=== PATIENT | female | born 1965 | race Caucasian/White ===

== ENCOUNTER 2016-12-12 10:41 | Outpatient (RCR) | payer OTHER ==
[~2016-12-12 10:41] MED LIST: ACET50TAOT PO; CALC500C16 PO; CALC600T10 PO; IBUP200C PO; IBUP60TA PO; NORC5TAB PO
== END 2016-12-18 ==
LOC: M PT 10:41
PROVIDERS: ATTEND Orthopaedic Surgery
DX: Z51.89 Encounter for other specified aftercare (principal); M50.30 Other cervical disc degeneration, unspecified cervical region

== ENCOUNTER → 2016-12-29 | Outpatient (CLI) | payer OTHER ==
--- NOTE | 2016-12-31 09:23 | REP ---
MRI CERVICAL SPINE WITHOUT CONTRAST: 12/29/2016. Clinical history: Neck pain, degenerative disc disease. Right upper extremity tingling. Injury a few months ago. Technique: Sagittal T1, T2 and STIR images with axial T1 and T2 sequences. Comparison: CT cervical spine 03/23/2011. Findings: Sagittal images show loss of the normal lordosis as seen in the 2010 study. There is cervical spondylosis at the C5-6 and C6-7 with vertebral hemangioma of the posterior and superior aspect of the C6 level. All of the disc levels show some loss of disc water signal. Disc height best maintained at C3-4 and C2-3, slightly narrowed at C4-5. Vertebral body heights are maintained. Marrow signal is otherwise normal. The dens intact. Cervical cord shows no intrinsic signal abnormality, syrinx, atrophy or mass. At C2-3 there is no disc bulge or herniation and no spinal or foraminal stenosis. At C3-4 there is no significant disc bulge herniation and no spinal or foraminal stenosis. At C4-5 there is mild broad-based disc bulge without significant spinal stenosis. The foramina were adequate. At C5-6 there is a broad-based disc bulge flattening ventral thecal sac. Cross-sectional area of the canal adequate. The foramina adequate on the left marginally adequate on the right. At C6-7 there is a right paracentral disc extrusion abutting and displacing the ventral cord surface on the right. Cross-sectional area of the canals otherwise adequate as are the foramina abutting and displacing the ventral cord surface. The cross-sectional area of the canal was adequate as are the foramina. At C7-T1 there is no disc bulge or herniation and no spinal or foraminal stenosis. Impression: 1. Cervical spondylosis at C5-6, less at C6-7 and C4-5. 2. Right paracentral disc extrusion at C6-7. No significant stenosis. 3. Broad-based disc bulge at C5-6 flattening ventral thecal sac, but the cross-sectional area of the canal and left foramen are adequate. The right foramen marginally adequate. Vertebral hemangioma at the superior posterior aspect of the C6 vertebral body as on CT. 4. Disc bulge at the C4-5 flattens ventral thecal sac, but the cross-sectional area canal and foramina appear adequate. The other levels unremarkable. Signed by Reese Day MD 01/01/2017 12:31 P
== END ==
LOC: M RAD 09:03
PROVIDERS: ATTEND Orthopaedic Surgery
DX: M54.12 Radiculopathy, cervical region (principal)

== ENCOUNTER 2017-01-03 08:57 | Outpatient (RCR) | payer OTHER ==
[~2017-01-03 08:57] MED LIST changes: +NORC1TAB4 PO; -NORC5TAB PO
== END 2017-01-18 ==
LOC: M PT 08:57
PROVIDERS: ATTEND Orthopaedic Surgery
DX: Z51.89 Encounter for other specified aftercare (principal); M50.30 Other cervical disc degeneration, unspecified cervical region

== ENCOUNTER → 2017-09-03 | Outpatient (REF) | payer BC ==
[~2017-09-03] MED LIST changes: -CALC600T10 PO; +CALC600T31 PO; -IBUP200C PO; +IBUP200C10 PO
--- NOTE | 2017-09-03 13:13 | REP ---
DIAGNOSTIC MAMMOGRAM OF THE LEFT BREAST WITH LEFT BREAST ULTRASOUND: Diagnostic mammogram of the left breast performed. Multiple spot compression views are obtained and compared to prior study of 08/16/2017, as well as multiple other prior exams. The suspected spiculated nodular density in the lower left breast does not appear to be persist on the additional spot compression views. There is no change compared to more remote exams. Real-time sonographic evaluation of the inferior left breast performed demonstrates dense fibroglandular tissue without a discrete cystic or solid mass. IMPRESSION: BI-RADS/ACR category 2 mammogram. Benign finding(s). Routine annual screening mammography (for women over age 40). ACR 2 benign. No persistent spiculated nodule on today's spot compression views. There is also no sonographic abnormality in the inferior left breast. Recommend followup mammogram in 1 year. The patient letter being requested is M1. Signed by Jose Wolfe MD 09/03/2017 01:32 P
== END ==
LOC: EDSTATUS 10:30 → M RAD 10:31
PROVIDERS: ATTEND Family Medicine
DX: Z12.31 Encounter for screening mammogram for malignant neoplasm of breast (principal)

== ENCOUNTER → 2018-04-08 | Outpatient (CLI) | payer BC ==
[2018-04-08 07:50] LABS: HEMATOCRIT 39.9 % (36.0-47.0); HEMOGLOBIN 13.3 g/dl (12.0-15.5); MEAN CORPUSCULAR HEMOGLOBIN 29.6 pg (27.0-33.0); MEAN CORPUSCULAR HGB CONC 33.3 g/dl (32.0-36.5); MEAN CORPUSCULAR VOLUME 88.9 fl (80.0-96.0); PLATELET COUNT, AUTOMATED 226 10^3/uL (150-450); RED BLOOD COUNT 4.49 10^6/uL (4.00-5.40); RED CELL DISTRIBUTION WIDTH 12.2 % (11.5-14.5); WHITE BLOOD COUNT 5.6 10^3/uL (4.0-10.0)
[2018-04-08 08:25] LABS: ALBUMIN 3.3 GM/DL (3.2-5.2); ALBUMIN/GLOBULIN RATIO 0.92 (1.00-1.93); ALKALINE PHOSPHATASE 93 U/L (45-117); ALT/SGPT 24 U/L (12-78); ANION GAP 8 MEQ/L (8-16); AST/SGOT 14 U/L (7-37); BILIRUBIN,TOTAL 0.3 MG/DL (0.2-1.0); BLOOD UREA NITROGEN 20 MG/DL (7-18); CALCIUM LEVEL 8.7 MG/DL (8.5-10.1); CARBON DIOXIDE LEVEL 28 MEQ/L (21-32); CHLORIDE LEVEL 107 MEQ/L (98-107); CHOLESTEROL LEVEL 213 MG/DL (<200); CHOLESTEROL RISK RATIO 4.953 (<5); CREATININE FOR GFR 0.96 MG/DL (0.55-1.30); FREE T4 0.86 NG/DL (0.76-1.46); GLOMERULAR FILTRATION RATE > 60.0 (>51); GLUCOSE, FASTING 89 MG/DL (70-100); HDL CHOLESTEROL 43 MG/DL (>40); LDL CHOLESTEROL 136.6 MG/DL (<100); NON-HDL-C 170 MG/DL; SODIUM LEVEL 143 MEQ/L (136-145); THYROID STIMULATING HORMONE 0.656 uIU/ML (0.358-3.740); TOTAL PROTEIN 6.9 GM/DL (6.4-8.2); TRIGLYCERIDES LEVEL 167 MG/DL (<150)
== END ==
LOC: M LAB 07:01
DX: D50.9 Iron deficiency anemia, unspecified (principal); E78.00 Pure hypercholesterolemia, unspecified; E04.1 Nontoxic single thyroid nodule
CPT/HCPCS: 84443

== ENCOUNTER → 2018-09-04 | Outpatient (CLI) | payer BC | LOC: M ADAMS 14:58 | DX: J40 Bronchitis, not specified as acute or chronic (principal) | CPT/HCPCS: 71046 ==

== ENCOUNTER → 2019-03-10 | Outpatient (REF) | payer BC ==
[~2019-03-10] MED LIST changes: +ACET500T15 PO; -ACET50TAOT PO; -IBUP200C10 PO; +IBUP200C25 PO; +IBUP600T42 PO; -IBUP60TA PO; -NORC1TAB4 PO; +NORC1TAB7 PO
--- NOTE | 2019-03-10 13:35 | REPMRS ---
Patient History The patient states she had a clinical breast exam in 04/07.No known family history of cancer. 3D TOMOSYNTHESIS WAS PERFORMED. Digital Mammo Screening Bilat: March 10, 2019 - Exam #: [id number] Bilateral CC and MLO view(s) were taken. Technologist: Esther Hadley, Technologist Prior study comparison: September 03, 2017, left breast digital mammo diagnostic unilateral performed at [facility]. August 16, 2017, bilateral digital mammo screening bilat performed at [facility]. FINDINGS: The breast tissue is heterogeneously dense. This may lower the sensitivity of mammography. There has been no change in the appearance of the mammogram from the prior studies. There is a moderate amount of residual fibroglandular tissue which is fairly symmetric. There is no interval development of dominant mass, areas of architectural distortion, or clustered microcalcification typical of malignancy. Assessment: BI-RADS/ACR category 1 mammogram. Negative Mammogram. Recommendation Routine screening mammogram in 1 year (for women over age 40). This mammogram was interpreted with the aid of an FDA-approved computer-aided dectection system. Electronically Signed By: Jose Wolfe MD 03/10/19 [id number]
== END ==
LOC: M RAD 12:27 → EDSTATUS 12:30
PROVIDERS: ATTEND Obstetrics & Gynecology
DX: Z12.31 Encounter for screening mammogram for malignant neoplasm of breast (principal)

== ENCOUNTER → 2019-11-20 | Outpatient (REF) ==
--- NOTE | 2019-11-20 08:07 | REP ---
PA and lateral chest: Comparison is 11/16/2015. The lung menezes are clear. The cardiac size is normal. The josephine, mediastinum, and skeletal structures are unremarkable. Impression: Negative PA and lateral chest. There is no interval change. Electronically Signed by Jose Mccoy MD 11/20/2019 07:59 A
[2019-11-20 09:11] LABS: HEMATOCRIT 43.1 % (36.0-47.0); HEMOGLOBIN 13.4 g/dl (12.0-15.5); MEAN CORPUSCULAR HGB CONC 31.1 g/dl (32.0-36.5); PLATELET COUNT, AUTOMATED 238 10^3/uL (150-450); RED BLOOD COUNT 4.79 10^6/uL (4.00-5.40); WHITE BLOOD COUNT 4.2 10^3/uL (4.0-10.0)
[2019-11-20 09:31] LABS: BLOOD UREA NITROGEN 14 MG/DL (7-18); CARBON DIOXIDE LEVEL 29 MEQ/L (21-32); CHLORIDE LEVEL 109 MEQ/L (98-107); CHOLESTEROL LEVEL 213 MG/DL (<200); CHOLESTEROL RISK RATIO 4.733 (<5); CREATININE FOR GFR 0.96 MG/DL (0.55-1.30); GLOMERULAR FILTRATION RATE > 60.0 (>51); GLUCOSE, FASTING 88 MG/DL (70-100); HDL CHOLESTEROL 45 MG/DL (>40); LDL CHOLESTEROL 139 MG/DL (<100); NON-HDL-C 168 MG/DL; POTASSIUM SERUM 4.6 MEQ/L (3.5-5.1); SODIUM LEVEL 142 MEQ/L (136-145); TRIGLYCERIDES LEVEL 145 MG/DL (<150)
[2019-11-20 10:02] LABS: APPEARANCE, URINE CLEAR (CLEAR); BACTERIA, URINE AUTO NEGATIVE (NEGATIVE); BILIRUBIN, URINE AUTO NEGATIVE (NEGATIVE); BLOOD, URINE BLOOD 1+ (NEGATIVE); COLOR, URINE YELLOW (YELLOW); GLUCOSE, URINE (UA) AUTO NEGATIVE (NEGATIVE); KETONE, URINE AUTO NEGATIVE (NEGATIVE); LEUKOCYTE ESTERASE, URINE AUTO TRACE (NEGATIVE); NITRITE, URINE AUTO NEGATIVE (NEGATIVE); PROTEIN, URINE AUTO NEGATIVE (NEGATIVE); RBC, URINE AUTO 2 /HPF (0-3); SPECIFIC GRAVITY URINE AUTO 1.009 (1.002-1.035); SQUAMOUS EPITHELIAL CELL UR AU 1 /HPF (0-6); UROBILINOGEN, URINE AUTO 0.2 mg/dL (0.0-2.0); WBC, URINE AUTO 1 /HPF (0-3)
--- NOTE | 2019-11-21 10:50 | ECGEPIP ---
[facility] Test Date: 2019-11-20 Pat Name: ANNA MATOS Department: Room: - Gender: Female Lead Mobile Developer: RUMA : 1965 Requested By: Ruben Romero Order Number: [id number] Reading MD: Tito Keating Measurements Intervals [place] Rate: 65 P: -2 ME: 147 QRS: -14 QRSD: 77 T: 44 QT: 370 QTc: 386 Interpretive Statements SINUS RHYTHM PRIOR TRACING ON 10/27/2015 AT 1:01 P.M., NO SIGNIFICANT CHANGES Electronically Signed on 11-21-2019 10:50:11 EST by Tito Keating
== END ==
LOC: M LAB 07:19
PROVIDERS: ATTEND Family Medicine
DX: Z02.1 Encounter for pre-employment examination (principal)

== ENCOUNTER → 2020-01-08 | Outpatient (REF) | payer BC ==
[2020-01-08 12:50] LABS: FREE T4 1.04 NG/DL (0.76-1.46); THYROID STIMULATING HORMONE 0.739 uIU/ML (0.358-3.740)
== END ==
LOC: M SFHCADAM 08:19
PROVIDERS: ATTEND Family Medicine
DX: R06.09 Other forms of dyspnea (principal)

== ENCOUNTER → 2020-08-15 | Outpatient (CLI) | payer BC ==
--- NOTE | 2020-08-16 10:40 | PFTRPT ---
Height: 68.00 Inches Weight: 164.00 Lbs BSA: 1.88 Diagnosis: R06.09 DATE: 08/15/2020 ORDERING PHYSICIAN: Dr. Romero. Technique: Pre- and post-bronchodilator study of excellent technical quality. Forced vital capacity is normal. FEV1 is in proportion of obstructive index; therefore, normal. Expiratory limit within the flow-volume loop is normal. No significant bronchodilator response identified. Total lung capacity was normal. Residual volume is in proportion with diffusing capacity, although reduced, is appropriate for alveolar volume. No hemoglobin is available for correction. Airway resistance and conductance are normal. IMPRESSION: Reduction in the absolute diffusing capacity requires clinical correlation; otherwise, normal study. MTDD
--- NOTE | 2020-08-16 14:16 | ECHO ---
DATE OF PROCEDURE: 08/15/2020 Age: 55 Gender: Female Height: 172 cm Weight: 74 kg PATIENT LOCATION: Outpatient. REFERRING PHYSICIAN: Ruben Romero MD INDICATION: Dyspnea on exertion. MEASUREMENTS: IVS 0.8 cm LV 5.1 cm LVPW 0.7 cm LA 3.4 cm Aorta 2.9 cm RV 2.8 IVC 1.8 cm Left atrial volume index 23 Mitral E wave velocity 69 Mitral A wave 54 E prime septal 10.1 E prime lateral 13.6 FINDINGS: This study is of fair technical quality with challenging visualization. The patient is in sinus rhythm. Normal left ventricular (LV) size with preserved left ventricular (LV) systolic function and estimated left ventricular ejection fraction (LVEF) 60% to 65%. No segmental wall motion abnormalities are appreciated. Normal diastolic function based on mitral inflow pattern on tissue Doppler imaging. Right ventricle is also normal size and systolic function. Both atria appear normal. The aortic valve is mildly sclerotic, but has three cusps and preserved mobility. Normal mitral and tricuspid valves. Pulmonic valve was not well seen. No pericardial effusion is noted. Inferior vena cava is of normal size and appropriately collapses with inspiration, indicative of normal central venous pressure (CVP). Aortic root is normal. Aortic arch also appears normal. Abdominal aorta was not well seen. Doppler interrogation reveals competent aortic valve. Same applies to the mitral valve. There is no significant tricuspid insufficiency and consequently, I am unable to estimate pulmonary artery pressure. CONCLUSIONS: 1. Study is of acceptable technical quality, patient is in sinus rhythm. 2. Normal left ventricular (LV) size with preserved left ventricular (LV) systolic and diastolic function. 3. No significant valvular disease. 4. Likely normal central venous pressure. 5. Unable to estimate pulmonary artery pressure, but no signs to suggest pulmonary hypertension. COMMENTS: Relatively normal echocardiogram. No obvious findings to explain dyspnea on exertion. MTDD
== END ==
LOC: M CARPUL 08:14
PROVIDERS: ATTEND Family Medicine
DX: R06.09 Other forms of dyspnea (principal)

== ENCOUNTER → 2020-08-16 | Outpatient (CLI) | payer BC ==
--- NOTE | 2020-08-16 16:37 | REPMRS ---
Patient History No known family history of cancer. 3D TOMOSYNTHESIS WAS PERFORMED. The Stephanie Garcias lifetime risk for breast cancer is 5.4%. Volpara breast density b. Digital Woman Screen Mammo: August 16, 2020 - Exam #: [id number] Bilateral CC and MLO view(s) were taken. Technologist: Yolanda Smiley, Technologist Prior study comparison: March 10, 2019, bilateral digital mammo screening bilat, performed at [facility]. September 03, 2017, left breast digital mammo diagnostic unilateral, performed at [facility]. FINDINGS: The breast tissue is heterogeneously dense. This may lower the sensitivity of mammography. There has been no change in the appearance of the mammogram from the prior studies. There is a moderate amount of residual fibroglandular tissue which is fairly symmetric. There is no interval development of dominant mass, areas of architectural distortion, or clustered microcalcification typical of malignancy. Assessment: BI-RADS/ACR category 1 mammogram. Negative Mammogram. Recommendation Routine screening mammogram in 1 year (for women over age 40). This mammogram was interpreted with the aid of an FDA-approved computer-aided dectection system. Electronically Signed By: Jose Wolfe MD 08/16/20 [id number]
== END ==
LOC: M WHC 14:22
PROVIDERS: ATTEND Family Medicine
DX: Z12.31 Encounter for screening mammogram for malignant neoplasm of breast (principal)

== ENCOUNTER → 2020-09-27 | Outpatient (CLI) | payer SELFPAY | LOC: M LABSMTC 17:07 | PROVIDERS: ATTEND Pediatrics | DX: Z11.59 Encounter for screening for other viral diseases (principal) ==

== ENCOUNTER → 2021-05-26 | Outpatient (CLI) | payer BC ==
[2021-05-26 10:42] LABS: HEMATOCRIT 41.1 % (36.0-47.0); HEMOGLOBIN 13.2 g/dl (12.0-15.5); MEAN CORPUSCULAR HEMOGLOBIN 28.4 pg (27.0-33.0); MEAN CORPUSCULAR HGB CONC 32.1 g/dl (32.0-36.5); MEAN CORPUSCULAR VOLUME 88.6 fl (80.0-96.0); PLATELET COUNT, AUTOMATED 221 10^3/uL (150-450); RED BLOOD COUNT 4.64 10^6/uL (4.00-5.40); WHITE BLOOD COUNT 5.5 10^3/uL (4.0-10.0)
[2021-05-26 11:17] LABS: ALBUMIN 3.7 GM/DL (3.2-5.2); ALT/SGPT 36 U/L (12-78); BILIRUBIN,TOTAL 0.5 MG/DL (0.2-1.0); BLOOD UREA NITROGEN 18 MG/DL (7-18); CALCIUM LEVEL 9.3 MG/DL (8.5-10.1); CARBON DIOXIDE LEVEL 31 MEQ/L (21-32); CHLORIDE LEVEL 108 MEQ/L (98-107); CHOLESTEROL LEVEL 224 MG/DL (<200); CHOLESTEROL RISK RATIO 5.209 (<5); CREATININE FOR GFR 0.83 MG/DL (0.55-1.30); FREE T4 0.83 NG/DL (0.76-1.46); GLOMERULAR FILTRATION RATE > 60.0 (>51); GLUCOSE, FASTING 88 MG/DL (70-100); HDL CHOLESTEROL 43 MG/DL (>40); LDL CHOLESTEROL 126 MG/DL (<100); NON-HDL-C 181 MG/DL; POTASSIUM SERUM 4.5 MEQ/L (3.5-5.1); SODIUM LEVEL 141 MEQ/L (136-145); TRIGLYCERIDES LEVEL 276 MG/DL (<150)
== END ==
LOC: M LAB 10:05
PROVIDERS: ATTEND Family Medicine
DX: D50.9 Iron deficiency anemia, unspecified (principal); E78.00 Pure hypercholesterolemia, unspecified; E04.1 Nontoxic single thyroid nodule

== ENCOUNTER → 2021-08-17 | Outpatient (CLI) | payer BC ==
--- NOTE | 2021-08-17 10:47 | REPMRS ---
Patient History The patient states she had a clinical breast exam in April 2021. No known family history of cancer. Patient states no breast complaints today. Patient has signed MRS History Sheet. Digital Woman Screen Mammo: August 17, 2021 - Exam #: [id number] Bilateral CC and MLO view(s) were taken. Technologist: Isabela Lewis, Technologist Prior study comparison: August 16, 2020, bilateral digital woman screen mammo performed at [facility]. March 10, 2019, bilateral digital mammo screening bilat, performed at [facility]. FINDINGS: The breast tissue is heterogeneously dense. This may lower the sensitivity of mammography. Screening. Digital screening (2D) mammography was performed bilaterally in the CC and MLO projections. Additionally, breast tomosynthesis (3D mammography) was performed bilaterally in the CC and MLO projections. Todays exam was compared to the prior exam/exams. By history, the patient has no complaints of a palpable breast abnormality or other significant breast complaints. The Volpara volumetric breast density category is C, the breasts are heterogenously dense which may obscure small masses. The breasts are unchanged in size and shape. There are no damion-soft tissue densities or spiculated masses. There is no internal architectural distortion. There are no suspicious damion-calcific clusters. Skin thickening or nipple retraction is not present. IMPRESSION: BI-RADS Category 2- Benign Findings. There is no evidence of malignant alteration of the breasts. Followup examination recommended in one year. The lifetime Tyrer-Cuzick score is 5.3% This mammogram was read with the assistance of [facility],an FDA approved computer aided detection system for mammography. Due to the density of the breasts, MRI/whole breast screening ultrasound is warranted. Negative x-ray reports should not delay surgical consultation if a dominant or clinically suspicious mass is present. Not all breast cancers can be identified by mammography. Therefore, we recommend that you continue to perform regular breast self-examination and physical examination and then promptly contact your physician of any concerns or changes. Adenosis and dense breasts may obscure an underlying neoplasm. No significant changes when compared with prior studies. Assessment: BI-RADS/ACR category 2 mammogram. Benign Findings. Recommendation Routine screening mammogram of both breasts in 1 year. Electronically Signed By: Jorge Castano MD 08/17/21 [id number]
== END ==
LOC: M WHC 09:17
PROVIDERS: ATTEND Obstetrics & Gynecology
DX: Z12.31 Encounter for screening mammogram for malignant neoplasm of breast (principal)

== ENCOUNTER → 2021-12-17 | Outpatient (CLI) | payer BC ==
[2021-12-17 08:43] LABS: HEMATOCRIT 41.8 % (36.0-47.0); HEMOGLOBIN 13.8 g/dl (12.0-15.5); MEAN CORPUSCULAR HEMOGLOBIN 28.5 pg (27.0-33.0); MEAN CORPUSCULAR VOLUME 86.2 fl (80.0-96.0); PLATELET COUNT, AUTOMATED 227 10^3/uL (150-450); RED BLOOD COUNT 4.85 10^6/uL (4.00-5.40); WHITE BLOOD COUNT 4.9 10^3/uL (4.0-10.0)
[2021-12-17 09:13] LABS: ALBUMIN 3.8 GM/DL (3.2-5.2); ALT/SGPT 37 U/L (12-78); BILIRUBIN,TOTAL 0.4 MG/DL (0.2-1.0); BLOOD UREA NITROGEN 19 MG/DL (7-18); CALCIUM LEVEL 9.4 MG/DL (8.5-10.1); CARBON DIOXIDE LEVEL 31 MEQ/L (21-32); CHLORIDE LEVEL 109 MEQ/L (98-107); CHOLESTEROL LEVEL 235 MG/DL (<200); CHOLESTEROL RISK RATIO 5.222 (<5); FREE T4 0.98 NG/DL (0.76-1.46); GLOMERULAR FILTRATION RATE > 60.0 (>51); GLUCOSE, FASTING 102 MG/DL (70-100); HDL CHOLESTEROL 45 MG/DL (>40); LDL CHOLESTEROL 152 MG/DL (<100); NON-HDL-C 190 MG/DL; POTASSIUM SERUM 4.7 MEQ/L (3.5-5.1); SODIUM LEVEL 143 MEQ/L (136-145); TOTAL PROTEIN 7.3 GM/DL (6.4-8.2); TRIGLYCERIDES LEVEL 190 MG/DL (<150)
== END ==
LOC: M LAB 08:15
PROVIDERS: ATTEND Family Medicine
DX: E78.5 Hyperlipidemia, unspecified (principal)

== ENCOUNTER → 2023-01-02 | Outpatient (CLI) | payer BC ==
[2023-01-02 10:51] LABS: HEMATOCRIT 42.2 % (36.0-47.0); HEMOGLOBIN 13.6 g/dl (12.0-15.5); MEAN CORPUSCULAR HEMOGLOBIN 28.3 pg (27.0-33.0); MEAN CORPUSCULAR HGB CONC 32.2 g/dl (32.0-36.5); MEAN CORPUSCULAR VOLUME 87.9 fl (80.0-96.0); PLATELET COUNT, AUTOMATED 234 10^3/uL (150-450)
[2023-01-02 11:17] LABS: ALBUMIN 3.9 G/DL (3.2-5.2); ALKALINE PHOSPHATASE 118 U/L (46-116); ALT/SGPT 17 U/L (7.0-40); AST/SGOT 15 U/L (<34); BILIRUBIN,TOTAL 0.6 MG/DL (0.3-1.2); BLOOD UREA NITROGEN 22 MG/DL (9-23); CALCIUM LEVEL 9.6 MG/DL (8.5-10.1); CARBON DIOXIDE LEVEL 28 MMOL/L (20-31); CHLORIDE LEVEL 107 MMOL/L (98-107); CHOLESTEROL LEVEL 213 MG/DL (<200); CHOLESTEROL RISK RATIO 5.46 (<5); CREATININE FOR GFR 0.87 MG/DL (0.55-1.30); GLOMERULAR FILTRATION RATE > 60.0 (>51); GLUCOSE, FASTING 86 MG/DL (60-100); IRON (FE) 86 UG/DL (50-170); LDL CHOLESTEROL 145.8 MG/DL (<100); PERCENT SATURATION 26.5 % (13.2-45.0); POTASSIUM SERUM 4.8 MMOL/L (3.5-5.1); SODIUM LEVEL 139 MMOL/L (136-145); TOTAL IRON BINDING CAPACITY 325 UG/DL (250-425); TOTAL PROTEIN 6.9 G/DL (5.7-8.2); TRIGLYCERIDES LEVEL 141 MG/DL (<150)
[2023-01-02 11:19] LABS: FERRITIN 106.6 NG/ML (7.3-270.7)
[2023-01-02 11:29] LABS: HEMOGLOBIN A1c 5.6 % (4.0-6.0)
== END ==
LOC: M LAB 09:51
PROVIDERS: ATTEND Family Medicine
DX: E78.5 Hyperlipidemia, unspecified (principal); R73.03 Prediabetes; D50.9 Iron deficiency anemia, unspecified

== ENCOUNTER → 2023-01-17 | Outpatient (REF) | payer BC | LOC: M SFHCADAM 09:24 | PROVIDERS: ATTEND Family Medicine | DX: Z53.9 Procedure and treatment not carried out, unspecified reason (principal) ==

== ENCOUNTER → 2023-12-30 | Outpatient (CLI) | payer BC | LOC: M WHC 08:52 | PROVIDERS: ATTEND Family Medicine | DX: Z12.31 Encounter for screening mammogram for malignant neoplasm of breast (principal) ==

== ENCOUNTER → 2024-01-02 | Outpatient (CLI) | payer BC ==
[2024-01-02 10:19] LABS: HEMATOCRIT 42.6 % (36.0-47.0); HEMOGLOBIN 13.8 g/dl (12.0-15.5); MEAN CORPUSCULAR HEMOGLOBIN 28.3 pg (27.0-33.0); MEAN CORPUSCULAR HGB CONC 32.4 g/dl (32.0-36.5); MEAN CORPUSCULAR VOLUME 87.3 fl (80.0-96.0); PLATELET COUNT, AUTOMATED 227 10^3/uL (150-450); RED BLOOD COUNT 4.88 10^6/uL (4.00-5.40); WHITE BLOOD COUNT 5.1 10^3/uL (4.0-10.0)
[2024-01-02 10:34] LABS: HEMOGLOBIN A1c 5.5 % (4.0-6.0)
[2024-01-02 10:55] LABS: ALBUMIN 4.1 G/DL (3.2-5.2); ALKALINE PHOSPHATASE 98 U/L (46-116); ALT/SGPT 16 U/L (7.0-40); AST/SGOT 12 U/L (<34); BILIRUBIN,TOTAL 0.7 MG/DL (0.3-1.2); BLOOD UREA NITROGEN 19 MG/DL (9-23); CALCIUM LEVEL 9.8 MG/DL (8.3-10.6); CARBON DIOXIDE LEVEL 29 MMOL/L (20-31); CHLORIDE LEVEL 107 MMOL/L (98-107); CHOLESTEROL LEVEL 263 MG/DL (<200); CHOLESTEROL RISK RATIO 5.38 (<5); CREATININE FOR GFR 0.97 MG/DL (0.55-1.30); FERRITIN 85.8 NG/ML (7.3-270.7); FREE T4 1.05 NG/DL (0.89-1.76); GLOMERULAR FILTRATION RATE > 60.0 (>45); GLUCOSE, FASTING 92 MG/DL (74-106); HDL CHOLESTEROL 48.8 MG/DL (>40); LDL CHOLESTEROL 186.2 MG/DL (<100); NON-HDL-C 214.2 MG/DL; POTASSIUM SERUM 4.7 MMOL/L (3.5-5.1); SODIUM LEVEL 139 MMOL/L (136-145); TOTAL PROTEIN 7.1 G/DL (5.7-8.2); TRIGLYCERIDES LEVEL 140 MG/DL (<150)
== END ==
LOC: M LAB 09:41
PROVIDERS: ATTEND Family Medicine
DX: E04.1 Nontoxic single thyroid nodule (principal); D50.9 Iron deficiency anemia, unspecified; E78.5 Hyperlipidemia, unspecified; R73.03 Prediabetes

== ENCOUNTER → 2024-01-02 | Outpatient (REF) | payer BC | LOC: M SFHCADAM 13:06 | PROVIDERS: ATTEND Physician Assistant | DX: Z12.4 Encounter for screening for malignant neoplasm of cervix (principal) | CPT/HCPCS: 87624; G0123 ==

== ENCOUNTER 2024-01-08 10:58 | Day surgery (SDC) | payer BC ==
[~2024-01-08] VITALS: Ht 172.7 cm; Wt 71.3 kg
[2024-01-08] MEDS: NS 1,000 ML IV ONE (12:24)
[2024-01-08] MEDS ORDERED: fentaNYL 100 MCG/2 ML INJECTION As Ordered ONE (13:08)
[2024-01-08 13:48] VITALS: TEMP 98.4
[2024-01-08] MEDS ORDERED: propofoL 200 MG/20 ML VIAL As Ordered ONE (14:01)
[2024-01-08 14:10] VITALS: BP 110/66; O2SAT 99
== END 2024-01-08 14:15 | disposition home or self-care (01) ==
LOC: M OPP 10:58
PROVIDERS: ATTEND Internal Medicine Gastroenterology
DX: Z12.11 Encounter for screening for malignant neoplasm of colon (principal); K64.0 First degree hemorrhoids; K22.89 Other specified disease of esophagus; K44.9 Diaphragmatic hernia without obstruction or gangrene; K21.00 Gastro-esophageal reflux disease with esophagitis, without bleeding; R12 Heartburn
CPT/HCPCS: 43239; 45378; 88305; J3010

== ENCOUNTER → 2024-04-14 | Outpatient (CLI) | payer BC ==
[2024-04-14 11:46] LABS: CHOLESTEROL RISK RATIO 4.5 (<5); HDL CHOLESTEROL 49.3 MG/DL (>40); LDL CHOLESTEROL 149.3 MG/DL (<100); NON-HDL-C 172.7 MG/DL
== END ==
LOC: M LAB 10:47
PROVIDERS: ATTEND Family Medicine
DX: E78.5 Hyperlipidemia, unspecified (principal)

== ENCOUNTER → 2024-08-05 | Outpatient (CLI) | payer BC | LOC: M ADAMS 12:12 | PROVIDERS: ATTEND Family Medicine | DX: J18.9 Pneumonia, unspecified organism (principal) ==

== ENCOUNTER → 2025-01-26 | Outpatient (CLI) | payer BC ==
[2025-01-26 10:42] LABS: BASO % 0.6 % (0.0-1.0); EOS # 0.2 10^3/uL (0.0-0.5); HEMATOCRIT 41.8 % (36.0-47.0); HEMOGLOBIN 13.7 g/dl (12.0-15.5); LYMPH # 1.5 10^3/uL (1.5-5.0); LYMPH % 30.5 % (24.0-44.0); MEAN CORPUSCULAR HEMOGLOBIN 28.6 pg (27.0-33.0); MEAN CORPUSCULAR HGB CONC 32.8 g/dl (32.0-36.5); MEAN CORPUSCULAR VOLUME 87.3 fl (80.0-96.0); MONO # 0.4 10^3/uL (0.0-0.8); MONO % 8.6 % (2.0-8.0); NEUTROPHILS # 2.7 10^3/uL (1.5-8.5); NEUTROPHILS % 56.1 % (36.0-66.0); PLATELET COUNT, AUTOMATED 243 10^3/uL (150-450); RED BLOOD COUNT 4.79 10^6/uL (4.00-5.40); WHITE BLOOD COUNT 4.8 10^3/uL (4.0-10.0)
[2025-01-26 10:58] LABS: CREATININE, URINE 74.2 MG/DL; MALB URINE SIEMENS < 3.0 MG/L
[2025-01-26 10:59] LABS: ALBUMIN 4.2 G/DL (3.2-5.2); ALKALINE PHOSPHATASE 102 U/L (35-104); ALT/SGPT 19 U/L (7.0-40); AST/SGOT 18 U/L (<34); BILIRUBIN,TOTAL 0.7 MG/DL (0.3-1.2); BLOOD UREA NITROGEN 18 MG/DL (9-23); CALCIUM LEVEL 9.6 MG/DL (8.3-10.6); CARBON DIOXIDE LEVEL 29 MMOL/L (20-31); CHLORIDE LEVEL 106 MMOL/L (98-107); CHOLESTEROL LEVEL 233 MG/DL (<200); CHOLESTEROL RISK RATIO 4.39 (<5); CREATININE FOR GFR 0.93 MG/DL (0.55-1.30); GLOMERULAR FILTRATION RATE > 60.0 (>45); GLUCOSE, FASTING 89 MG/DL (74-106); IRON (FE) 106 UG/DL (50-170); LDL CHOLESTEROL 157.2 MG/DL (<100); PERCENT SATURATION 34.6 % (13.2-45.0); POTASSIUM SERUM 4.8 MMOL/L (3.5-5.1); SODIUM LEVEL 142 MMOL/L (136-145); TOTAL IRON BINDING CAPACITY 306 UG/DL (250-425); TRIGLYCERIDES LEVEL 114 MG/DL (<150)
[2025-01-26 11:03] LABS: FERRITIN 88.2 NG/ML (7.3-270.7); FREE T4 1.15 NG/DL (0.89-1.76)
[2025-01-26 11:04] LABS: FOLATE 13.5 NG/ML (>5.4); TOTAL 25(OH) VITAMIN D 25.7 NG/ML (20.0-100.0); VITAMIN B12 LEVEL 286 PG/ML (211-911)
== END ==
LOC: M LAB 09:20
PROVIDERS: ATTEND Physician Assistant Medical
DX: E78.5 Hyperlipidemia, unspecified (principal); E53.8 Deficiency of other specified B group vitamins; E04.1 Nontoxic single thyroid nodule; D50.9 Iron deficiency anemia, unspecified; R73.03 Prediabetes

== ENCOUNTER → 2025-01-28 | Outpatient (CLI) | payer BC | LOC: M WHC 08:50 | PROVIDERS: ATTEND Family Medicine | DX: Z12.31 Encounter for screening mammogram for malignant neoplasm of breast (principal); R92.333 Mammographic heterogeneous density, bilateral breasts ==